=== PATIENT | female | born 2000 | race Caucasian/White ===

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

== ENCOUNTER 2024-02-17 10:02 | Inpatient (IN) ==
[2024-02-17] MEDS: Lidocaine PATCH 5% PATCH TRANSDERM ONE (11:11)
[2024-02-17] MEDS ORDERED: fentaNYL 100 mcg/2 ml 50 MCG/ML VIAL ONE (18:15)
[2024-02-17] MEDS ORDERED: Midazolam 5 mg/5 ml VIAL 1 mg/ml 5 ml VIAL (5 mg) ONE (18:15)
[2024-02-17] MEDS ORDERED: oxyCODONE/Acetamin 5/325 mg TAB PO PRN (18:58)
[2024-02-17] MEDS ORDERED: HYDROmorphone 1 MG/1 ML SYRINGE IV SLOW PU PRN (18:58)
[2024-02-17 19:01] LABS: ABS Lymphocytes 0.8 10^3/uL (1.0-4.8); ABS Monocytes 0.3 10^3/uL (0.0-0.9); ABS Neutrophils 9.5 10^3/uL (1.5-7.6); ABS Nucleated RBC 0.01 10^3/ul; Hematocrit 43.8 % (35-45); Hemoglobin 14.9 g/dL (11.5-14.3); Lymphocyte % 7.2 %; Mean Corpuscular Hemoglobin 31.8 pg (27-33); Mean Corpuscular Hgb Conc 34.2 g/dL (31-36); Mean Corpuscular Volume 93.1 fL (80-97); Mean Platelet Volume 10.2 fL (7.5-11.2); Nucleated Red Blood Cells % 0.1 %/100WBC (0.0-0.8); Platelet Count 219 10^3/uL (150-450); Red Cell Distribution Width 13.4 % (12-17); White Blood Count 10.6 10^3/uL (3.8-11.8)
[2024-02-17 19:09] LABS: ALT 22 U/L (7-52); Albumin 5.3 g/dL (3.2-5.2); Albumin/Globulin Ratio 1.8 (1-3); Alkaline Phosphatase 76 U/L (35-149); Anion Gap 17 mmol/L (2-16); Blood Urea Nitrogen 12 mg/dL (6-24); CO2 Carbon Dioxide 19 mmol/L (22-32); Calcium 10.3 mg/dL (8.6-10.3); Chloride 100 mmol/L (101-111); Creatinine, Serum 0.91 mg/dL (0.51-0.95); Glucose 94 mg/dL (70-100); Sodium 136 mmol/L (135-145); Total Bilirubin 0.9 mg/dL (0.2-1.0); Total Protein 8.3 g/dL (6.4-8.9)
[2024-02-17] MEDS ORDERED: Midazolam 2 mg/2 ml VIAL 1 mg/ml 2 ml VIAL (2 mg) ONE (19:20)
[2024-02-17] MEDS: fentaNYL 100 mcg/2 ml 50 MCG/ML VIAL IV SLOW PU ONE (19:47)
[2024-02-17] MEDS: Midazolam 2 mg/2 ml VIAL 1 mg/ml 2 ml VIAL (2 mg) IV SLOW PU ONE ×2 (19:47→19:54)
[2024-02-17] MEDS: Ondansetron 4 mg VIAL 2 MG/ML 2 ml VIAL IV PRN (19:59)
[2024-02-17] MEDS: HYDROmorphone 0.5 MG/0.5 ML SYRINGE IV SLOW PU PRN (20:48)
[2024-02-17] MEDS: LORazepam 2 mg VIAL 1 ml IV PUSH PRN (21:21)
[2024-02-17] MEDS ORDERED: Prochlorperazine 5 mg/ml 2 ml VIAL (10 mg) IV PRN (22:31)
[2024-02-18] MEDS: LACTATED RINGERS 1000 ML/HR *Bolus IV ONE (13:50)
[2024-02-18] MEDS: D5W 1/2 NS w/KCL 20 MEQ IVFLUID 1000 ML IV SCH (15:03)
[2024-02-21 10:30] VITALS: BP 105/76
== END 2024-02-21 13:00 | disposition home or self-care (01) | DRG 143 ==
LOC: ED 10:02 → EDHOLD 10:02 → SSU 20:13
PROVIDERS: ADMIT Surgery; ATTEND Surgery

== ENCOUNTER 2024-10-24 14:33 | Inpatient (IN) ==
[2024-10-24] MEDS ORDERED: Lidocaine 1% VIAL 10 MG/ML 30 ML VIAL INJ PRN (15:19)
[2024-10-24] MEDS ORDERED: Nalbuphine 10 MG/ML 1 ML VIAL IV PRN (15:19)
[2024-10-24] MEDS ORDERED: Prochlorperazine 5 mg/ml 2 ml VIAL (10 mg) IV PRN (15:19)
[2024-10-24 16:35] LABS: ABS Eosinophils 0.1 10^3/uL (0.0-0.5); ABS Monocytes 0.6 10^3/uL (0.0-0.9); ABS Neutrophils 10.3 10^3/uL (1.5-7.6); ABS Nucleated RBC 0.01 10^3/ul; Eosinophil % 0.6 %; Hematocrit 32.6 % (35-45); Hemoglobin 10.7 g/dL (11.5-14.3); Lymphocyte % 15.6 %; Mean Corpuscular Hemoglobin 27.1 pg (27-33); Mean Corpuscular Hgb Conc 32.9 g/dL (31-36); Mean Corpuscular Volume 82.4 fL (80-97); Mean Platelet Volume 9.8 fL (7.5-11.2); Nucleated Red Blood Cells % 0.1 %/100WBC (0.0-0.8); Platelet Count 259 10^3/uL (150-450); Red Blood Count 3.96 10^6/uL (3.63-4.92); Red Cell Distribution Width 14.1 % (12-17); White Blood Count 13.1 10^3/uL (3.8-11.8)
[2024-10-24] MEDS: Betamethasone 6 mg/ml 5 ml VIAL IM SCH (16:39)
[2024-10-24 16:52] LABS: Urine Creatinine Concentration 95.65 mg/dL (20.00-320.00); Urine TP Creat Ratio 0.28 mg/mg
[2024-10-24 17:01] LABS: Urine Benzodiazepine Screen None Detected (None Detect); Urine Cannabinoids Screen None Detected (None Detect); Urine Opiates Screen None Detected (None Detect)
[2024-10-24 17:08] LABS: Albumin/Globulin Ratio 1.3 (1-3); Calcium 9.7 mg/dL (8.6-10.3); Creatinine, Serum 0.56 mg/dL (0.51-0.95); Potassium 3.6 mmol/L (3.5-5.0); Total Bilirubin 0.3 mg/dL (0.2-1.0); eGFR CKD-EPI 132.3 (>60)
[2024-10-24 20:20] LABS: Urine Appearance Turbid; Urine Bilirubin Negative (Negative); Urine Blood Negative (Negative); Urine Color Light-Yellow; Urine Glucose Negative (Negative); Urine Ketones Negative (Negative); Urine Nitrite Negative (Negative); Urine Protein Trace (Negative); Urine Specific Gravity 1.014 (1.002-1.030); Urine Urobilinogen Negative (Negative)
[2024-10-24 20:22] LABS: Urine Bacteria 1+ /HPF (Absent); Urine Red Blood Cell 1+(3-5/hpf) /HPF (0-Trace); Urine Squamous Epithelial Cell Present /HPF (Absent); Urine White Blood Cell 1+(6-10/hpf) /HPF (0-Trace)
[2024-10-24] MEDS: Lactated Ringers 1000 ml BAG 1,000 ML IV ONE (21:06)
[2024-10-24] MEDS: ceFAZolin 1 GM ADVAN 1 GM in NS 0.9% 50 ML 50 ML IVPB ONE (21:25)
[2024-10-25 14:13] LABS: RPR Nonreactive (Nonreactive)
[2024-10-26] MEDS: Lactated Ringers 1000 ml BAG 1,000 ML IV SCH (12:12)
[2024-10-26] MEDS ORDERED: Morphine PF AMP (0.5MG/ML) 5 MG/10 ML AMP ONE (16:24)
[2024-10-26] MEDS ORDERED: Ondansetron 4 mg VIAL 2 MG/ML 2 ml VIAL ONE (16:24)
[2024-10-26] MEDS ORDERED: Oxytocin 10 UNITS/ML 1 ML VIAL ONE (16:24)
[2024-10-26] MEDS ORDERED: Propofol 10 MG/ML 20 ML BTL ONE (16:24)
[2024-10-26] MEDS ORDERED: Metoclopramide 5 MG/ML VIAL (10 mg) ONE (16:24)
[2024-10-26] MEDS ORDERED: Phenylephrine IV 10 MG/ML 1 ml VIAL ONE (16:28)
[2024-10-26] MEDS ORDERED: Phenylephrine 40 mcg/mL 10mL (400mcg) SYRINGE ONE (16:28)
[2024-10-26 17:30] LABS: Urine Appearance Clear; Urine Bilirubin Negative (Negative); Urine Blood Negative (Negative); Urine Color Light-Yellow; Urine Glucose Negative (Negative); Urine Ketones Negative (Negative); Urine Nitrite Negative (Negative); Urine Protein Negative (Negative); Urine Urobilinogen Negative (Negative); Urine pH 7.5 (5.0-8.0)
[2024-10-26] MEDS ORDERED: Glycerin ADULT 2.4 gm SUPP PR PRN (17:34)
[2024-10-26] MEDS ORDERED: Witch Hazel PAD JAR TOPICAL PRN (17:34)
[2024-10-26] MEDS ORDERED: Dibucaine 1% OINT 28.35 GM TUBE PR PRN (17:34)
[2024-10-26] MEDS ORDERED: Metoclopramide 5 MG/ML VIAL (10 mg) IV PRN (17:38)
[2024-10-26] MEDS ORDERED: Ondansetron 4 mg VIAL 2 MG/ML 2 ml VIAL IV PRN (17:38)
[2024-10-26] MEDS ORDERED: Naloxone 0.4 mg VIAL 0.4 mg/ml 1 ml VIAL IV PUSH PRN (17:38)
[2024-10-26] MEDS ORDERED: Lactated Ringers 1000 ml BAG 1,000 ML IV SCH (18:00)
[2024-10-26] MEDS: Acetaminophen IV 1 GM/100ML 1,000 MG/100 ML BAG IV PRN (18:16)
[2024-10-26] MEDS: Oxytocin in LR 20,000 MILLI.UNIT/1,000 ML BAG IV SCH (18:24)
[2024-10-26] MEDS: ceFOXitin 2 GM IVPREMIX 2 GM/50 ML BAG IVPB ONE (20:55)
[2024-10-26] MEDS: Methylergonovine 0.2 mg AMPULE 1 ml AMP ONE (20:56)
[2024-10-26] MEDS: Methylergonovine 0.2 mg AMPULE 1 ml AMP IM ONE (20:56)
[2024-10-26] MEDS: Oxytocin in LR 20,000 MILLI.UNIT/1,000 ML BAG IV ONE (22:31)
[2024-10-26] MEDS: Acetaminophen IV 1 GM/100ML 1,000 MG/100 ML BAG IV ONE (22:31)
[2024-10-27 09:08] LABS: ABS Lymphocytes 2.5 10^3/uL (1.0-4.8); ABS Monocytes 1.2 10^3/uL (0.0-0.9); ABS Neutrophils 11.7 10^3/uL (1.5-7.6); ABS Nucleated RBC 0.01 10^3/ul; Eosinophil % 0.3 %; Hematocrit 25.5 % (35-45); Hemoglobin 8.5 g/dL (11.5-14.3); Lymphocyte % 16.3 %; Mean Corpuscular Hemoglobin 27.2 pg (27-33); Mean Corpuscular Hgb Conc 33.5 g/dL (31-36); Mean Corpuscular Volume 81.3 fL (80-97); Mean Platelet Volume 10.1 fL (7.5-11.2); Nucleated Red Blood Cells % 0.1 %/100WBC (0.0-0.8); Platelet Count 204 10^3/uL (150-450); Red Blood Count 3.14 10^6/uL (3.63-4.92); White Blood Count 15.5 10^3/uL (3.8-11.8)
[2024-10-27] MEDS: Buffered Lidocaine 1% SYRIN 1 ml INTRADERM ONE (20:05)
[2024-10-29 08:26] VITALS: BP 93/57
[2024-10-29 14:50] LABS: T.Pallidum TP-PA Negative (Negative)
[2024-10-29] MEDS: Varicella Virus Vaccine Live 0.5 ML VIAL SUBCUT ONE (18:58)
== END 2024-10-29 19:44 | disposition home or self-care (01) | DRG 540 ==
LOC: MCHOBOUT 14:33 → MCHOB 15:42
PROVIDERS: ADMIT Obstetrics & Gynecology; ATTEND Obstetrics & Gynecology